=== PATIENT | male | born 1970 | race Hispanic/Latino ===

== ENCOUNTER 2024-12-24 17:34 | Emergency (ER) | payer BC, SELFPAY ==
[2024-12-24 17:46] VITALS: BP 130/86; PULSE 88; RESP 18; TEMP 37.3; O2SAT 98; BMI 32.3
--- NOTE | 2024-12-24 18:12 | XR_ITS ---
Examination: Hand, left 3 views Technique: Hand AP, oblique, lateral 3 views Date and time of exam: December 24, 2024 1831 hours INDICATIONS: Patient fell today with injury of the hand, hand pain FINDINGS: On the lateral view small fracture deformity at the base of the proximal phalanx first digit No dislocation No foreign body IMPRESSION: Small fracture deformity at the base of the proximal phalanx first digit, clinical correlation advised
--- NOTE | 2024-12-24 18:13 | PD.EDHAND ---
Upper Extremity Injury RME/HPI General Chief Complaint: Hand/Wrist Problems Stated Complaint: LEFT THUMB PAIN, S/P INJURY X 3D Time Seen by Provider: 12/24/24 18:06 Source: patient, family, RN notes reviewed and old records reviewed Arrival date/time: 12/24/24 17:34 Mode of arrival: ambulatory Limitations: no limitations RME / HPI RME / HPI narrative: 54yom presents to ED for hand pain s/p fall 3 days ago. Patient reports trip and fall landing on outstretched left hand, c/o pain and swelling to base of thumb. No deformity reported. No medications or treatments since injury occurred. Related Data Previous Rx's ?Medication ?Instructions ?Recorded Hydrocodone/Acetaminophen * (NORCO 1 tab PO Q4H PRN PAIN #14 tabs 06/24/15 5/325 *) Allergies Allergy/AdvReac Type Severity Reaction Status Date / Time NKA* Allergy Uncoded 12/25/24 08:26 Review of Systems Review of Systems Systems Reviewed: All systems reviewed, normal except as documented Musculoskeletal Musculoskeletal: Reports arthralgias, Denies deformity, Reports joint swelling, Reports limited range of motion, Denies numbness and Denies tingling Neurologic Neurologic: Denies numbness and Denies tingling Past Medical History Past Medical History GASTROINTESTINAL: Positive Obesity Surgical History OTHER SURGICAL HX: denies pshx Social History SMOKING STATUS: Never smoker SUBSTANCE USE: does not use ALCOHOL: Never ED Exam General Limitations: Present no limitations General appearance: Present alert and in no apparent distress Head Head exam: Present atraumatic and normocephalic Eye Eye exam: Present normal appearance, PERRL and EOMI ENT ENT exam: Present normal exam and mucous membranes moist Neck Neck exam: Present normal inspection and full ROM Chest Chest inspection: Present normal inspection and symmetric chest wall rise Respiratory Respiratory exam: Present normal lung sounds bilaterally; Absent respiratory distress Cardiovascular Cardiovascular exam: Present regular rate and normal rhythm Extremities Exam Extremities exam: Present other (Mild tenderness and swelling to base of left thumb. Limited ROM 2/2 pain. <2s cap refill, sensation intact) Neurological Exam Neurological exam: Present alert and oriented X3 Psychiatric Psychiatric exam: Present normal affect and normal mood Skin Skin exam: Present warm, dry, intact and normal color Course Quality Measures none Orders Category Date Time Status Splint / Immobilizer STAT Care 12/24/24 19:54 Completed XR hand comp LT min 3V Stat Exams 12/24/24 18:12 Completed Vital Signs Vital signs: Vital Signs Temperature 99.2 F 12/24/24 17:46 Pulse Rate 88 12/24/24 17:46 Respiratory Rate 18 12/24/24 17:46 Blood Pressure 130/86 H 12/24/24 17:46 Pulse Oximetry (%) 98 12/24/24 17:46 Oxygen Delivery Method Room Air 12/24/24 17:46 Procedures -ED Splint Fabrication: Pre-Fabricated Type: Finger Protector Reason for Splint: Improve Function, Optimal Positioning, Pain Management, Prevent Deformities and Support Joint/Muscle Circulation Distal to Splint: Yes Movement Distal to Splint: Yes Senation Distal to Splint: Yes Tolerance: Tolerates Well Extremity Injury MDM Narrative MDM Narrative:: 54yom presents to ED for hand pain s/p fall 3 days ago. Patient reports trip and fall landing on outstretched left hand, c/o pain and swelling to base of thumb. No deformity reported. No medications or treatments since injury occurred. Patient is neurovascularly intact. Encouraged RICE therapy, Motrin/Tylenol prn pain. Encouraged follow-up with PCP or Ortho. Stable for discharge, RTED precautions given. Patient data External records reviewed:: None (no prior visits) Clinical information provided by:: patient and family (daughter) Social determinants that could affect healthcare access:: other (specify) (poor access to healthcare, acculturation difficulty) Patient has the following chronic illnesses:: obesity How is presenting disease/condition affected by chronic disease/condition?: exacerbated by Evaluation data The following diagnostics were reviewed and interpreted by me:: radiology exam(s) Lab and/or radiology exams considered but not ordered:: none Interpretation Summary: Hand xrays: fracture at base of proximal phalanx 1st digit per my read Medications / Prescriptions Medications or Prescriptions considered but not ordered:: motrin - patient declined Medication administrations:: na Consultations Consultation(s) initiated? (list below): No Diagnosis Upper Extremity Injury Differential Diagnosis: other (fracture, dislocation, sprain, strain, contusion, msk pain) Most likely diagnosis given after review of the tests above:: Left thumb fracture Admission Indicated Admission indicated?: not indicated Admission Request Was there a request for admission?: No Disposition Plan Disposition Plan: Discharge Discharge Attestation Discharge Attestation: The patient and all family members were given an opportunity to ask questions and understood the discharge instructions. Discharge instructions specifically effects, indications for sooner follow up or return to the emergency department, and the expected course of current diagnosis. Patient condition: Stable Discharge Plan Plan Patient Disposition: HOME (Self Care) Patient condition on transfer: Stable Prescriptions/Referrals Prescriptions/Med Rec: No Action Hydrocodone/Acetaminophen * (NORCO 5/325 *) 1 TAB tablet 1 tab PO Q4H PRN (Reason: PAIN) Qty: 14 0RF Rx Instructions: FOR PAIN Referrals: No Primary/Family,Physician [Primary Care Provider] - In 1 week Frederick Brizuela MD [Physician] - (To schedule an appointment as needed) Problem List Clinical Impression: Fracture of thumb, left, closed, Pain of left thumb Patient/Caregiver Discharge Instructions Education Materials: ED Fracture, Finger, Closed Additional Instructions: Alternate ibuprofen and Tylenol as needed for pain. Ice application can help with swelling. Print Language: Welsh Stand Alone Forms: Suad Award Info., Patient Portal Info Letter PA/MARKLOGIC DEVELOPER Supervising Physician PA/HENNA Supervising Physician: Blanche
== END 2024-12-24 20:36 | disposition home or self-care (01) ==
PROVIDERS: Emergency Provider Emergency Medicine
DX: S62.512A Displaced fracture of proximal phalanx of left thumb, initial encounter for closed fracture (principal); W01.0XXA Fall on same level from slipping, tripping and stumbling without subsequent striking against object, initial encounter
CPT/HCPCS: 73130; 99283